=== PATIENT | female | born 1930 | race Caucasian/White ===

== ENCOUNTER 2019-10-15 06:20 | Emergency (ER) | payer OTHER, MEDICAID ==
[~2019-10-15] VITALS: Ht 152.4 cm; Wt 50.0 kg
[2019-10-15 07:29] LABS: BASOPHILS % 1.1 % (0.0-2.0); EOSINOPHILS % 1.5 % (0.0-5.0); HEMATOCRIT. 31.2 % (36.0-48.0); HEMOGLOBIN. 10.6 g/dL (12.0-16.0); LYMPHOCYTES % 18.6 % (20.0-50.0); MEAN CORPUSCULAR HEMOGLOBIN 36.1 pg (28.0-32.0); MEAN CORPUSCULAR VOLUME 106.7 fL (81.0-99.0); MONOCYTES % 3.4 % (2.0-8.0); NEUTROPHILS % 75.4 % (40.0-76.0); RED BLOOD CELL COUNT 2.92 mill/uL (4.2-5.4); RED CELL DISTRIBUTION WIDTH 12.9 % (11.6-14.6)
[2019-10-15 07:35] LABS: CHLORIDE 107 mEq/L (98-107)
[2019-10-15 07:39] LABS: ETHANOL BLOOD < 10 mg/dL
[2019-10-15 07:53] LABS: PLATELET ESTIMATE NORMAL
[2019-10-15 07:55] LABS: MEAN PLATELET VOLUME 11.9 fl (7.4-10.4); PLATELET 156 x1000/uL (130-400)
[2019-10-15 09:30] VITALS: BP 125/45
== END 2019-10-15 10:33 | disposition home or self-care (01) ==
LOC: ER 06:20
DX: Z00.00 Encounter for general adult medical examination without abnormal findings (principal)
CPT/HCPCS: 36415; 80320; 99284; G0480